=== PATIENT | female | born 1930 | race Caucasian/White ===

== ENCOUNTER 2017-02-12 22:08 | Inpatient (IN) | payer MEDICARE, OTHER ==
--- NOTE | ~2017-02-12 | CN ---
Consultation Report [facility] [address] [place]. [address] NAME: MAREN CERON : 32 STATUS : DIS IN PAT#: [id number] AGE: 86 ADM/REG DATE : 02/14/17 MR#: [id number] REPORT SERV DATE: 02/17/17 DICTATED BY: DATE: REPORT STATUS : Draft TRANSCRIBED BY: MODL DATE: 02/17/17 CONSULTATION REPORT DATE OF CONSULTATION: 02/17/2017 REASON FOR CONSULTATION: Leg pain. IDENTIFYING DATA: PCP is Dr. Kassie Jeff; Cardiology is Dr. Fabricio Nava; Cardiology Interventional is Dr. Sheth. HISTORY OF PRESENT ILLNESS: This is a pleasant 86-year-old white female who was admitted for evaluation of syncope. Please see the initial H and P dictated by Dr. Fabricio Nava on 02/13/2017 for complete details regarding the patient's admission. In brief, the patient was admitted by Dr. Nava for initial workup and management of her syncope. At that time, the patient had experienced left facial droop followed by syncopal episode that lasted approximately 2 minutes in duration. The patient did not remember any events prior to or following the syncopal episodes. The patient was admitted to the hospital for further evaluation and treatment. It was determined by Dr. Sheth that the patient had had nonsustained V tach on telemetry and the patient had a pacemaker inserted on 02/16/2017. Yesterday evening, the patient experienced pain to bilateral lower extremities and a CT scan was done of her abdomen and pelvis to rule out possible hematoma. CT scan results without contrast showed: 1. No acute abdominal or pelvic pathology. 2. Small fat containing posterior right lung base diaphragmatic hernia defect. 3. Normal heart size. Small pericardial effusion. 4. Status post hysterectomy and percutaneous pinning of healed left femoral neck. 5. Extensive diverticulosis sigmoid colon with no acute diverticulitis pattern. CT of bilateral lower extremities showed: 1. No soft-tissue hematoma, bilateral extremities were imaged. 2. No fracture subluxation about the hips or joint throughout the bilateral knee joints. 3. Moderate osteoarthritis pattern in both knee joints. The patient's bilateral lower extremity leg pain was very severe at that time, and the patient did receive morphine with good pain relief. The patient denies any pain at present. The patient denies any pain with walking up or down stairs. Pain is not reproducible. The patient's history was obtained through careful interview with the patient and her sons coupled with review in [employer] and [employer]. PAST MEDICAL HISTORY: CVA, TIA, trigeminal neuralgia, "leaky valve," hyperlipidemia, arthritis, ulcer, hypertension, diverticulosis, syncopal episodes, dizziness, moderate aortic regurg, non-STEMI, moderate mitral regurg, and intermittent complete left bundle- branch block. HOME MEDICATIONS: Amlodipine 5 mg daily, atorvastatin 20 mg daily, Imdur 60 mg daily, Consultation Report [address] [place]. [address] NAME: MAREN CERON : 32 STATUS : DIS IN PAT#: [id number] AGE: 86 ADM/REG DATE : 02/14/17 MR#: [id number] REPORT SERV DATE: 02/17/17 DICTATED BY: DATE: REPORT STATUS : Draft TRANSCRIBED BY: MODL DATE: 02/17/17 Prinivil 20 mg daily, Protonix 40 mg daily, and a compounded eye drop from her medical interpreter four times a day in her right eye. ALLERGIES: THE PATIENT IS ALLERGIC TO PERCOCET AND HAS ADVERSE REACTIONS TO PENICILLIN AND ASPIRIN. SOCIAL HISTORY: The patient is retired and lives by herself. She denies alcohol, tobacco, or illicit drug use. FAMILY HISTORY: The patient's sister has amyotrophic lateral sclerosis; family history of [place], CVA, hypertension; cancer of the colon, breast, and uterus; seizures; and arthritis. The patient has had a recent echo with ejection fraction of 65%. PAST SURGICAL HISTORY: The patient has had bilateral cataract extraction with intraocular lens implants. She has had surgery on her right eyelid, hysterectomy, five trigeminal rhizotomies on her right face, and open reduction and internal fixation of her right hip. REVIEW OF SYSTEMS: A 10-point review of systems negative other than HPI. Pertinent positives are mentioned in the HPI. PHYSICAL EXAMINATION: VITAL SIGNS: Blood pressure is 137/72, temp is 97.4, heart rate is 96, O2 saturation is 95% on room air, and respirations are 18. GENERAL: Elderly female, resting in bed, in no acute distress. NEURO: Head is atraumatic and normocephalic. Pupils are equal, round, reactive to light. Alert and oriented x3. Cranial nerves II through XII are grossly intact. The patient does have right facial droop and lid droop due to multiple trigeminal neuralgia surgeries. NECK: Neck is supple. Trachea is midline. Neck veins are flat. No obvious thyromegaly or lymphadenopathy. EENT: Sclerae are nonicteric. Mucous membranes are moist. Extraocular muscles within normal limits. Tongue is midline without deviation. CHEST: No pain with palpation. Left pacer pocket with dressing intact. LUNGS: Lungs are clear to auscultation bilaterally with normal respiratory effort. CARDIOVASCULAR: S1 and S2 with paced rate and rhythm. ABDOMEN: Soft and nontender with active bowel sounds. No palpable organomegaly. Last bowel movement was on 02/13/2017. SKIN: Skin is warm and dry with no unusual rashes or skin lesions, normal color and turgor. PSYCH: The patient is pleasant and cooperative. LABORATORY DATA: From 02/16/2017; sodium is 141, potassium is 4.2, chloride is 108, BUN is 11, creatinine is 1.03, GFR is 58, glucose is 110, and calcium 10.2. Magnesium on 02/12/2017 was 2.0. WBCs on 02/16/2017 6.9, hemoglobin 13.6, and hematocrit 40.8. ASSESSMENT AND PLAN: Consultation Report [address] [place]. [address] NAME: MAREN CERON : 32 STATUS : DIS IN PAT#: [id number] AGE: 86 ADM/REG DATE : 02/14/17 MR#: [id number] REPORT SERV DATE: 02/17/17 DICTATED BY: DATE: REPORT STATUS : Draft TRANSCRIBED BY: MODL DATE: 02/17/17 1. Bilateral leg pain. This is not reproducible at this time and has not reoccurred this morning. We are ordering a PT eval and treat as well as stat BMP, mag, CPK, and CK-MB. We are also ordering a bilateral lower extremity venous Doppler to rule out deep venous thrombosis as well as Zanaflex 2 mg p.o. q.6 hours p.r.n. leg spasms or pain. 2. Constipation. The patient states call out clerk thought that her leg pain could possibly be due to constipation. We are ordering a milk and molasses enema now per the patient's request. We would like to take the time to thank you for this consultation. We will continue to follow the patient with you and follow her labs to evaluate whether she is ready for discharge. SLC/MODL Elizabeth Silvestre NP / [id number] CC: Fabricio Nava III, M.D., [facility], [facility] Kassie Jeff M.D.
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
[~2017-02-12 22:08] MED LIST: ALEVE220 MG PO; ASA5GR PO; ASAB PO; CARBAT200 PO; CEFT5 PO; COMPOUNDED EYE OPH; HALF81 PO; IMDUR60 PO; LEVAQ250 PO; MEVACOR40 MG PO; NEUR400 PO; NORV5 PO; PRIN20 PO; PROTONIX PO; SINGULAIR1 PO; SOOTHE EYE DROPS OPH; SOOTHE EYE OPH; T PO; ULTRAM50 PO; ZOFRAN4 PO; [UNRECOGNIZED DRUG - OTHER] PO
[2017-02-12 22:48] LABS: BASOPHILS 0.5 %; BASOPHILS ABSOLUTE 0.04 10/3/uL (0.0-0.16); EOSINOPHILS 0.5 %; EOSINOPHILS ABSOLUTE 0.04 10/3/uL (0.0-0.53); HEMATOCRIT 36.2 % (36.0-48.0); HEMOGLOBIN 12.2 g/dL (12.0-16.0); IMMATURE GRANULOCYTES 0.1 %; IMMATURE GRANULOCYTES ABSOLUTE 0.01 10/3/uL (0.0-0.11); LYMPHOCYTES 17.4 %; LYMPHOCYTES ABSOLUTE 1.27 10/3/uL (0.67-4.30); MEAN CORPUS HGB CONC 33.7 g/dL (32.0-36.0); MEAN CORPUSCULAR HEMOGLOB 30.3 pg (26.0-34.0); MEAN CORPUSCULAR VOLUME 89.8 fL (80-100); MONOCYTES 7.1 %; MONOCYTES ABSOLUTE 0.52 10/3/uL (0.21-1.20); NEUTROPHILS 74.4 %; NEUTROPHILS ABSOLUTE 5.42 10/3/uL (2.02-8.40); PLATELET COUNT 244 10/3/uL (150-400); RBC DISTRIBUTION WIDTH 12.1 % (12.0-16.0); RED CELL COUNT 4.03 10/6/uL (4.0-5.6); WHITE BLOOD CELLS 7.3 10/3/uL (4.5-10.5)
[2017-02-12 22:50] LABS: MANUAL DIFF NO %
[2017-02-12 22:56] LABS: INTERNATIONAL NORMAL RATI 1.1 UNITS (-); PROTIME (NOT ORD) 13.9 SEC (12.0-14.5)
[2017-02-12 22:57] LABS: PARTIAL THROMBO TIME 28.4 SEC (22.5-37.2)
[2017-02-12 23:04] LABS: BUN (BLOOD UREA NITROGEN) 15 MG/DL (6-23); CHEST PAIN PROFILE TAT 0 Hrs 20 Mins; CHLORIDE, SERUM 108 MMOL/L (96-112); CO2 (CARBON DIOXIDE) 26 MMOL/L (24-34); CREATININE 0.89 MG/DL (0.55-1.02); GFR AFRICAN AMERICAN 69 ML/MIN (>=60); GFR NON AFRICAN AMERICAN 60 ML/MIN (>=60); GLUCOSE, SERUM 123 MG/DL (60-99); POTASSIUM, SERUM 3.9 MMOL/L (3.5-5.3); SODIUM, SERUM 141 MMOL/L (135-148); TROPONIN I 1.93 NG/ML (<0.05)
[2017-02-12] MEDS ORDERED: ZESTRIL30 MG PO (23:18)
[2017-02-12] MEDS ORDERED: PROTONIX PO (23:18)
[2017-02-12] MEDS ORDERED: LIPITOR10 PO (23:18)
[2017-02-12] MEDS ORDERED: COMPOUNDED EYE OPH (23:19)
[2017-02-12] MEDS ORDERED: NORV5 PO (23:19)
[2017-02-12] MEDS ORDERED: IMDUR60 PO (23:19)
[2017-02-13 01:22] LABS: TROPONIN I 1.93 NG/ML (<0.05)
[2017-02-13 07:50] LABS: BASOPHILS 0.4 %; BASOPHILS ABSOLUTE 0.03 10/3/uL (0.0-0.16); EOSINOPHILS 1.4 %; HEMATOCRIT 36.6 % (36.0-48.0); HEMOGLOBIN 12.5 g/dL (12.0-16.0); IMMATURE GRANULOCYTES 0.1 %; IMMATURE GRANULOCYTES ABSOLUTE 0.01 10/3/uL (0.0-0.11); LYMPHOCYTES 35.1 %; LYMPHOCYTES ABSOLUTE 2.46 10/3/uL (0.67-4.30); MEAN CORPUS HGB CONC 34.2 g/dL (32.0-36.0); MEAN CORPUSCULAR HEMOGLOB 30.6 pg (26.0-34.0); MEAN CORPUSCULAR VOLUME 89.7 fL (80-100); MONOCYTES 11.3 %; MONOCYTES ABSOLUTE 0.79 10/3/uL (0.21-1.20); NEUTROPHILS 51.7 %; NEUTROPHILS ABSOLUTE 3.61 10/3/uL (2.02-8.40); PLATELET COUNT 236 10/3/uL (150-400); RBC DISTRIBUTION WIDTH 12.2 % (12.0-16.0); RED CELL COUNT 4.08 10/6/uL (4.0-5.6)
[2017-02-13 07:53] LABS: MANUAL DIFF NO %
[2017-02-13 08:09] LABS: CHOL/HDL RATIO(NOT ORDER) 2.3 (0-5)
[2017-02-15 03:22] LABS: BASOPHILS 0.9 %; BASOPHILS ABSOLUTE 0.05 10/3/uL (0.0-0.16); EOSINOPHILS 4.1 %; EOSINOPHILS ABSOLUTE 0.24 10/3/uL (0.0-0.53); HEMATOCRIT 37.5 % (36.0-48.0); HEMOGLOBIN 12.9 g/dL (12.0-16.0); IMMATURE GRANULOCYTES 0.3 %; IMMATURE GRANULOCYTES ABSOLUTE 0.02 10/3/uL (0.0-0.11); LYMPHOCYTES 34.2 %; LYMPHOCYTES ABSOLUTE 1.98 10/3/uL (0.67-4.30); MEAN CORPUS HGB CONC 34.4 g/dL (32.0-36.0); MEAN CORPUSCULAR HEMOGLOB 31.2 pg (26.0-34.0); MEAN CORPUSCULAR VOLUME 90.6 fL (80-100); MEAN PLATELET VOLUME 9.3 fL (9.2-13.0); MONOCYTES 9.8 %; MONOCYTES ABSOLUTE 0.57 10/3/uL (0.21-1.20); NEUTROPHILS 50.7 %; NEUTROPHILS ABSOLUTE 2.93 10/3/uL (2.02-8.40); PLATELET COUNT 255 10/3/uL (150-400); RED CELL COUNT 4.14 10/6/uL (4.0-5.6); WHITE BLOOD CELLS 5.8 10/3/uL (4.5-10.5)
[2017-02-15 03:23] LABS: MANUAL DIFF NO %
[2017-02-15 03:29] LABS: INTERNATIONAL NORMAL RATI 1.1 UNITS (-); PROTIME (NOT ORD) 13.7 SEC (12.0-14.5)
[2017-02-15 03:42] LABS: BUN (BLOOD UREA NITROGEN) 17 MG/DL (6-23); CALCIUM, SERUM 9.4 MG/DL (8.5-10.4); CHLORIDE, SERUM 106 MMOL/L (96-112); CHOL/HDL RATIO(NOT ORDER) 2.3 (0-5); CHOLESTEROL 130 MG/DL (< 200); CO2 (CARBON DIOXIDE) 27 MMOL/L (24-34); CREATININE 0.92 MG/DL (0.55-1.02); GFR AFRICAN AMERICAN 66 ML/MIN (>=60); GFR NON AFRICAN AMERICAN 57 ML/MIN (>=60); GLUCOSE, SERUM 100 MG/DL (60-99); HDL CHOLESTEROL 57 MG/DL (> 49); LDL CHOLESTEROL 59 MG/DL (< 130); NON-HDL CHOLESTEROL 73 MG/DL (< 160); POTASSIUM, SERUM 3.6 MMOL/L (3.5-5.3); SODIUM, SERUM 141 MMOL/L (135-148); TRIGLYCERIDE 73 MG/DL (< 150)
[2017-02-16 11:19] LABS: BASOPHILS 0.5 %; BASOPHILS ABSOLUTE 0.04 10/3/uL (0.0-0.16); EOSINOPHILS 2.6 %; EOSINOPHILS ABSOLUTE 0.19 10/3/uL (0.0-0.53); HEMATOCRIT 39.8 % (36.0-48.0); HEMOGLOBIN 13.3 g/dL (12.0-16.0); IMMATURE GRANULOCYTES 0.3 %; IMMATURE GRANULOCYTES ABSOLUTE 0.02 10/3/uL (0.0-0.11); LYMPHOCYTES 21.1 %; LYMPHOCYTES ABSOLUTE 1.54 10/3/uL (0.67-4.30); MEAN CORPUS HGB CONC 33.4 g/dL (32.0-36.0); MEAN CORPUSCULAR HEMOGLOB 30.2 pg (26.0-34.0); MEAN CORPUSCULAR VOLUME 90.5 fL (80-100); MEAN PLATELET VOLUME 9.5 fL (9.2-13.0); MONOCYTES 12.1 %; MONOCYTES ABSOLUTE 0.88 10/3/uL (0.21-1.20); NEUTROPHILS 63.4 %; NEUTROPHILS ABSOLUTE 4.63 10/3/uL (2.02-8.40); PLATELET COUNT 252 10/3/uL (150-400); RBC DISTRIBUTION WIDTH 12.1 % (12.0-16.0); WHITE BLOOD CELLS 7.3 10/3/uL (4.5-10.5)
[2017-02-16 11:20] LABS: MANUAL DIFF NO %
[2017-02-16 11:24] LABS: PROTIME (NOT ORD) 13.2 SEC (12.0-14.5)
[2017-02-16 11:31] LABS: CALCIUM, SERUM 9.9 MG/DL (8.5-10.4); CHLORIDE, SERUM 108 MMOL/L (96-112); CO2 (CARBON DIOXIDE) 26 MMOL/L (24-34); CREATININE 0.81 MG/DL (0.55-1.02); GFR AFRICAN AMERICAN 77 ML/MIN (>=60); GFR NON AFRICAN AMERICAN 67 ML/MIN (>=60); GLUCOSE, SERUM 97 MG/DL (60-99); POTASSIUM, SERUM 4.2 MMOL/L (3.5-5.3); SODIUM, SERUM 138 MMOL/L (135-148)
[2017-02-16 11:32] LABS: BUN (BLOOD UREA NITROGEN) 13 MG/DL (6-23)
[2017-02-16 20:39] LABS: BASOPHILS 0.4 %; BASOPHILS ABSOLUTE 0.03 10/3/uL (0.0-0.16); EOSINOPHILS 1.5 %; HEMATOCRIT 40.8 % (36.0-48.0); HEMOGLOBIN 13.6 g/dL (12.0-16.0); IMMATURE GRANULOCYTES 0.4 %; IMMATURE GRANULOCYTES ABSOLUTE 0.03 10/3/uL (0.0-0.11); LYMPHOCYTES 23.7 %; LYMPHOCYTES ABSOLUTE 1.63 10/3/uL (0.67-4.30); MEAN CORPUS HGB CONC 33.3 g/dL (32.0-36.0); MEAN CORPUSCULAR HEMOGLOB 30.2 pg (26.0-34.0); MEAN CORPUSCULAR VOLUME 90.5 fL (80-100); MEAN PLATELET VOLUME 9.5 fL (9.2-13.0); MONOCYTES 10.8 %; MONOCYTES ABSOLUTE 0.74 10/3/uL (0.21-1.20); NEUTROPHILS 63.2 %; NEUTROPHILS ABSOLUTE 4.34 10/3/uL (2.02-8.40); PLATELET COUNT 238 10/3/uL (150-400); RBC DISTRIBUTION WIDTH 12.3 % (12.0-16.0); RED CELL COUNT 4.51 10/6/uL (4.0-5.6); WHITE BLOOD CELLS 6.9 10/3/uL (4.5-10.5)
[2017-02-16 20:40] LABS: MANUAL DIFF NO %
[2017-02-16 20:54] LABS: BUN (BLOOD UREA NITROGEN) 11 MG/DL (6-23); CALCIUM, SERUM 10.2 MG/DL (8.5-10.4); CHLORIDE, SERUM 108 MMOL/L (96-112); CO2 (CARBON DIOXIDE) 26 MMOL/L (24-34); CREATININE 1.03 MG/DL (0.55-1.02); GFR AFRICAN AMERICAN 58 ML/MIN (>=60); GFR NON AFRICAN AMERICAN 50 ML/MIN (>=60); GLUCOSE, SERUM 110 MG/DL (60-99); POTASSIUM, SERUM 4.2 MMOL/L (3.5-5.3); SODIUM, SERUM 141 MMOL/L (135-148)
[2017-02-17 13:30] LABS: BUN (BLOOD UREA NITROGEN) 12 MG/DL (6-23); CALCIUM, SERUM 9.5 MG/DL (8.5-10.4); CHLORIDE, SERUM 104 MMOL/L (96-112); CO2 (CARBON DIOXIDE) 26 MMOL/L (24-34); CPK 474 U/L (0-200); GFR AFRICAN AMERICAN 68 ML/MIN (>=60); GFR NON AFRICAN AMERICAN 59 ML/MIN (>=60); GLUCOSE, SERUM 101 MG/DL (60-99); POTASSIUM, SERUM 3.8 MMOL/L (3.5-5.3); SODIUM, SERUM 138 MMOL/L (135-148)
[2017-02-17 13:31] LABS: CK-MB 4.4 NG/ML
[2017-02-17] MEDS ORDERED: CO Q-10200 MG PO (17:06)
[2017-02-17] MEDS ORDERED: LIOR10 PO (17:08)
[2017-02-17] MEDS ORDERED: ULTRAM50 PO (17:11)
== END 2017-02-17 19:08 | disposition home or self-care (01) | DRG 242 ==
LOC: ER 22:08 → CDU1 23:38 → 7NO 02-14 16:14
PROVIDERS: Emergency Medicine; Internal Medicine Cardiovascular Disease; Nurse Practitioner Family
PROC: 4A023N7 Measurement of Cardiac Sampling and Pressure, Left Heart, Percutaneous Approach (ICD-10-PCS; 2017-02-15)
PROC: B2111ZZ Fluoroscopy of Multiple Coronary Arteries using Low Osmolar Contrast (ICD-10-PCS; 2017-02-15)
PROC: B2151ZZ Fluoroscopy of Left Heart using Low Osmolar Contrast (ICD-10-PCS; 2017-02-15)
PROC: 0JH606Z Insertion of Pacemaker, Dual Chamber into Chest Subcutaneous Tissue and Fascia, Open Approach (ICD-10-PCS; principal; 2017-02-16)
PROC: 02H63JZ Insertion of Pacemaker Lead into Right Atrium, Percutaneous Approach (ICD-10-PCS; 2017-02-16)
PROC: 02HK3JZ Insertion of Pacemaker Lead into Right Ventricle, Percutaneous Approach (ICD-10-PCS; 2017-02-16)
DX: I44.1 Atrioventricular block, second degree (principal); I21.4 Non-ST elevation (NSTEMI) myocardial infarction; I47.2 Ventricular tachycardia; I44.7 Left bundle-branch block, unspecified; I08.0 Rheumatic disorders of both mitral and aortic valves; I10 Essential (primary) hypertension; K59.00 Constipation, unspecified; M17.0 Bilateral primary osteoarthritis of knee; Z82.3 Family history of stroke; Z82.49 Family history of ischemic heart disease and other diseases of the circulatory system; Z80.0 Family history of malignant neoplasm of digestive organs; Z80.3 Family history of malignant neoplasm of breast; Z80.49 Family history of malignant neoplasm of other genital organs; Z90.710 Acquired absence of both cervix and uterus; Z86.73 Personal history of transient ischemic attack (TIA), and cerebral infarction without residual deficits; Z88.5 Allergy status to narcotic agent; Z88.0 Allergy status to penicillin; Z88.6 Allergy status to analgesic agent
CPT/HCPCS: 33208; 71010; 73700-50; 74176; 80048; 80061; 82550; 82553; 82962; 83735; 83880; 84460; 84484; 85025; 85610; 85730; 93005; 93306; 93458; 93620; 93880; 93923; 93970; 96374; 99285; A9270-GY; C1760; C1769; C1785; C1892; C1894; C1898; J0360; J0690; J2250; J2370; J2405; J3010; Q9967